=== PATIENT | male | born 1975 | race Caucasian/White ===

== ENCOUNTER 2025-04-12 15:06 | Outpatient (OUT) | payer OTHER, SELFPAY ==
--- OUTSIDE RECORDS SUMMARY | 2025-04-04 09:00 | XMS_ITS | Encounter Summary ---
Author Organization [facility] Address [address] [facility] [email or web address] [place] [address] Care Team Providers Care Yolk Spray Drier Name Role Phone Heike Jasmine NP Unavailable [phone] Rod Johnson MD Primary Care Provider [phone] Reason for Referral * Imaging (Routine) - Authorized Specialty Diagnoses / Procedures Referred By Contac t Referred To Contact Radiology Diagnoses Cholesteatoma of attic of ear, right Procedures CT orbits/sella wo IV contrast Brianda Adkins MD [address] [facility] [address] [place] [address] Phone: tel: fax: [facility] [address] [place] [address] Phone: tel: fax: Referral ID Status Reason Start Date Expiration Date V isits Requested Visits Authorized [id number] Authorized 04/04/2025 10/01/2025 1 1 Reason for Visit * Reason Comments Ear Problem 2 week check ears Encounter Details Date Type Department Care Team (Late st Contact Info) Description 04/04/2025 9:00 AM EDT Office Visit [facility] [place] [facility] [address] [facility] [address] [place] [address] Brianda Adkins MD [address] [facility] [address] [place] [address] Cholesteatoma of attic of ear, right (Primary Dx); Other infective chronic otitis externa of right ear; Lesion of tympanic membrane Social History Tobacco Use Types Packs/Day Years Used Date Smoking Tobacco: Never Smokeless Tobacco: Never Alcohol Use Standard Drinks/Week Comments Yes 2 (1 standard drink = 0.6 oz pur e alcohol) Sex and Gender Information Value Date Recorded Sex Assigned at Not on file Legal Sex Male 7:11 PM EDT Gender Identity Not on file Sexual Orientation Not on file documented as of this encounter Last Filed Vital Signs Vital Sign Reading Time Taken Comments Blood Pressure 121/81 04/04/2025 9:00 AM EDT Pulse 66 04/04/2025 9:00 AM EDT Temperature - - Respiratory Rate - - Oxygen Saturation - - Inhaled Oxygen Concentration - - Weight 101 kg (223 lb) 04/04/2025 9:00 AM EDT Height 177.8 cm (5' 10 ) 04/04/2025 9:00 AM EDT Body Mass Index 32 04/04/2025 9:00 AM EDT documented in this encounter Progress Notes * Brianda Adkins MD - 04/04/2025 9:00 AM EDT Subjective Patient ID: Yakov Langley is a 49 y.o. male who presents for Ear Problem (2 week check ears) F/U to evaluate possible infected cholesteatoma No family history on file. Active Ambulatory Problems Diagnosis Date Noted Eustachian tube dysfunction 03/16/2025 Family history of colon cancer 03/16/2025 Hypertension 03/16/2025 Internal derangement of left knee 03/16/2025 CLIVE (obstructive sleep apnea) 03/16/2025 Plantar fasciitis 03/16/2025 Screen for colon cancer 03/16/2025 Resolved Ambulatory Problems Diagnosis Date Noted No Resolved Ambulatory Problems Past Medical History: Diagnosis Date Arthritis December 2021 Ear problems Injury of anterior cruciate ligament, acute 1992 Tear of meniscus of knee 1992 Past Surgical History: Procedure Laterality Date ANTERIOR CRUCIATE LIGAMENT REPAIR 1992 MENISCECTOMY 1992 Allergies Allergen Reactions Azithromycin Hives Morphine Hallucinations Current Outpatient Medications on File Prior to Visit Medication Sig Dispense Refill meloxicam (Mobic) 15 MG tablet Take 1 tablet (15 mg) by mouth Daily 30 tablet 11 [] ciprofloxacin-dexAMETHasone (CiproDEX) otic suspension Administer 4 drops into the right ear in the morning and 4 drops before bedtime. Do all this for 10 days. 7.5 mL 0 No current facility-administered medications on file prior to visit. Objective Last Recorded Vitals Vitals: 04/04/25 0900 BP: 121/81 Pulse: 66 ENT Physical Exam Constitutional Appearance: patient appears well-developed, well-nourished and well-groomed, Communication/Voice: communication appropriate for developmental age; vocal quality normal; Ear Ear comments: RT - Moist debris suctioned from EAC and TM. Visualization of attic limited by friable soft tissue obstrcting exam. Small patch of thickened soft tissue in inf TM Assessment/Plan Diagnoses and all orders for this visit: Cholesteatoma of attic of ear, right Other infective chronic otitis externa of right ear Lesion of tympanic membrane Infection resolved, but exam of attic obscured by soft tissue. CT temporal bone and F/U documented in this encounter Miscellaneous Notes * Addendum Note - Orly Rodriguez - 04/04/2025 9:00 AM EDTAddended by: ORLY RODRIGUEZ on: 04/04/2025 03:56 PM Modules accepted: Orders documented in this encounter Plan of Treatment Upcoming Encounters Date Type Department Care Team (Late st Contact Info) Description 05/24/2025 8:30 AM EST Office Visit [facility] [place] [facility] [address] [facility] 130 [place] [address] Brianda Adkins MD 112 [facility] 130 [place] [address] Scheduled Orders Name Type Priority Associated Diagnoses Orde r Schedule CT orbits/sella wo IV contrast Imaging Routine Cholesteatoma of attic of ear, right Expected: 04/04/2025, Expires: 04/04/2026 documented as of this encounter Visit Diagnoses Diagnosis Cholesteatoma of attic of ear, right- Primary Other infective chronic otitis externa of right ear Lesion of tympanic membrane documented in this encounter Care Teams Yolk Spray Drier Relationship Specialty Start Date End Date Rod Johnson MD [address] [facility] 2 [place] [address] PCP - General Family Medicine 03/16/25 Heike Jasmine NP [address] [facility] 2 [place] [address] Nurse Practitioner Family Medicine 03/16/25 documented as of this encounter
--- OUTSIDE RECORDS SUMMARY | 2025-04-12 15:11 | XMS_ITS | Encounter Summary ---
Author Organization [facility] [employer] [facility] [employer] Address [id number] [address] [place] [address] Care Team Providers Care Psychologist Experimental Name Role Phone Unavailable Primary Care Provider Unavailabl e Encounter Details Date Type Department Care Team (Late st Contact Info) Description 07/26/2024 Orders Only [facility] [address] [place] [phone] Abiel Poole DO [address] [place] [address] Post-traumatic osteoarthritis of one knee, left Social History Tobacco Use Types Packs/Day Years Used Date Smoking Tobacco: Never Assessed Childcare Answer Date Recorded Childcare Unknown 12/09/2018 Employment Answer Date Recorded Employment Unknown 12/09/2018 Sex and Gender Information Value Date Recorded Sex Assigned at Not on file Legal Sex Male 11:41 AM EDT Gender Identity Not on file Sexual Orientation Not on file documented as of this encounter Plan of Treatment Not on file documented as of this encounter Visit Diagnoses Diagnosis Post-traumatic osteoarthritis of one knee, left documented in this encounter
--- OUTSIDE RECORDS SUMMARY | 2025-04-12 15:11 | XMS_ITS | Encounter Summary ---
Author Organization [facility] Address [address] [facility] [place] [address] Care Team Providers Care Diesel Plant Operator Name Role Phone Heike Jasmine BOOM STORAGE Unavailable [phone] Rod Johnson MD Primary Care Provider [phone] Heike Jasmine BOOM STORAGE Unavailable [phone] Rod Johnson MD Primary Care Provider [phone] Encounter Details Date Type Department Care Team (Late st Contact Info) Description 07/10/2023 Abstract [facility] [address] [place] [address] Rylan Monaco, DPM FAC[facility] [address] [place] [address] Social History Tobacco Use Types Packs/Day Years [...] as of this encounter Plan of Treatment Upcoming Encounters Date Type Department Care Team (Late st Contact Info) Description 05/24/2025 8:30 AM EST Office Visit [facility] [place] [facility] 112 [facility] 130 [place] [address] Brianda Adkins MD 112 [facility] 130 [place], [place] [phone] documented as of this encounter Visit Diagnoses Not on filedocumented in this encounter Care Teams Diesel Plant Operator Relationship Specialty Start Date End Date Rod Johnson MD PCP - General Family Medicine 06/19/23 03/15/25 Rod Johnson MD [address] [phone] PCP - General Family Medicine 03/16/25 Heike Jasmine NP Referring Physician Family Medicine 06/19/23 03/15/25 Heike Jasmine NP [address] [phone] Nurse Practitioner Family Medicine 03/16/25 documented as of this encounter
--- OUTSIDE RECORDS SUMMARY | 2025-04-12 15:11 | XMS_ITS | Encounter Summary ---
Author Organization [facility] Address [address] [facility] [place] [address] Care Team Providers Care Day Care Worker Name Role Phone Heike Jasmine SALES SERVICE PROMOTER Unavailable [phone] Rod Johnson MD Primary Care Provider [phone] Heike Jasmine SALES SERVICE PROMOTER Unavailable [phone] Rod Johnson MD Primary Care Provider [phone] Encounter Details Date Type Department Care Team (Late st Contact Info) Description 07/14/2023 Abstract [facility] [address] [place] [address] Rylan Monaco, DPM FACFAS [address] [place] [address] Social History Tobacco Use Types Packs/Day Years [...] EST Office Visit [facility] [place] [facility] 112 [facility] 130 [place] [address] Brianda Adkins MD 112 [facility] 130 [place], [place] [phone] documented as of this encounter Visit Diagnoses Not on filedocumented in this encounter Care Teams Day Care Worker Relationship Specialty Start Date End Date Rod Johnson MD PCP - General Family Medicine 06/19/23 03/15/25 Rod Johnson MD [address] [phone] PCP - General Family Medicine 03/16/25 Heike Jasmine NP Referring Physician Family Medicine 06/19/23 03/15/25 Heike Jasmine NP [address] [phone] Nurse Practitioner Family Medicine 03/16/25 documented as of this encounter
--- OUTSIDE RECORDS SUMMARY | 2025-04-12 15:11 | XMS_ITS | Encounter Summary ---
Author Organization [facility] Address [address] [place] [address] Care Team Providers Care Nuclear Reactor Operator Name Role Phone Heike Jasmine CONTROL CABINET ASSEMBLER Unavailable [phone] Rod Johnson MD Primary Care Provider [phone] Heike Jasmine CONTROL CABINET ASSEMBLER Unavailable [phone] Rod Johnson MD Primary Care Provider [phone] Encounter Details Date Type Department Care Team (Late st Contact Info) Description 09/02/2024 Abstract [facility] [address] [place] [address] Rylan Monaco, DPM FACFAS [address] [place] [address] Social History Tobacco Use Types Packs/Day Years [...] EST Office Visit [facility] [place] [facility] 112 [facility] 130 [place] [address] Brianda Adkins MD 112 [facility] 130 [place], [place] [phone] documented as of this encounter Visit Diagnoses Not on filedocumented in this encounter Care Teams Nuclear Reactor Operator Relationship Specialty Start Date End Date Rod Johnson MD PCP - General Family Medicine 06/19/23 03/15/25 Rod Johnson MD [address] [phone] PCP - General Family Medicine 03/16/25 Heike Jasmine NP Referring Physician Family Medicine 06/19/23 03/15/25 Heike Jasmine NP [address] [phone] Nurse Practitioner Family Medicine 03/16/25 documented as of this encounter
--- OUTSIDE RECORDS SUMMARY | 2025-04-12 15:11 | XMS_ITS | Clinical Summary ---
Author Organization [facility] Address [address] [place] [address] Phone Care Team Providers Care Printing Table Hand Name Role Phone Unavailable Primary Care Provider Unavailabl e Social History Tobacco Use Types Packs/Day Years Used Date Smoking Tobacco: Never Assessed Sex and Gender Information Value Date Recorded Sex Assigned at Not on file Legal Sex Male 1:08 PM EDT Gender Identity Not on file Sexual Orientation Not on file Plan of Treatment Health Maintenance Due Date Last Done Comments CT Colonography 1975 Colonoscopy 1975 Colorectal Cancer Screening 1975 FIT-DNA (Cologuard) 1975 FIT 1975 HIV Screening 1975 Lipid Panel 1975 Sigmoidoscopy 1975 Yearly Adult Physical 1975 MMR Vaccines (1 of 1 - Stand valerie series) 10/20/1976 Hepatitis C Screening 10/20/1993 Hepatitis B Vaccines (1 of 3 - 19+ 3-dose series) 10/20/1994 DTaP/Tdap/Td Vaccines (1 - Tdap) 10/20/1997 COVID-19 Vaccine ( - 2023-2 5 season) 2025 Influenza Vaccine (#1) 2025 Zoster Vaccines (1 of 2) 10/20/2025 HIB Vaccines Aged Out No longer eligi ble based on patient's age to complete this topic HPV Vaccines Aged Out No longer eligi ble based on patient's age to complete this topic Hepatitis A Vaccines Aged Out No long er eligible based on patient's age to complete this topic IPV Vaccines Aged Out No longer eligi ble based on patient's age to complete this topic Meningococcal Vaccine Aged Out No tea emani eligible based on patient's age to complete this topic Pneumococcal Vaccine: Pediat rics and At-Risk Adult Patients Aged Out No longer sahara gible based on patient's age to complete this topic Rotavirus Vaccines Aged Out No longer eligible based on patient's age to complete this topic
--- OUTSIDE RECORDS SUMMARY | 2025-04-12 15:11 | XMS_ITS | Encounter Summary ---
Author Organization [facility] [employer] [facility] Address [facility] [id number] [address] [place] [address] Care Team Providers Care Plate Stacker Name Role Phone Unavailable Primary Care Provider Unavailabl e Reason for Visit * Reason Onset Date Comments discuss imaging and appt with Dr. Romero 08/16 Encounter Details Date Type Department Care Team (Late st Contact Info) Description 08/16/2024 [facility] [address] [place] [phone] Erica Rain RMA discuss imaging and appt with Dr. Romero Social History Tobacco Use Types Packs/Day Years Used Date Smoking Tobacco: Never Smokeless Tobacco: Never Alcohol Use Standard Drinks/Week Comments Yes 0 (1 standard drink = 0.6 oz pur e alcohol) Childcare Answer Date Recorded Childcare Unknown 12/09/2018 Employment Answer Date Recorded Employment Unknown 12/09/2018 Sex and Gender Information Value Date Recorded Sex Assigned at Not on file Legal Sex Male 11:41 AM EDT Gender Identity Not on file Sexual Orientation Not on file documented as of this encounter Miscellaneous Notes * Telephone Encounter - GERMAN Cosby - 08/16/2024 2:12 PM EST This is the patient I am trying to see if Tenex will be covered. Bilateral Achilles. Per Dr. 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 Romero in conversation Ellen will reach out to patient, letting him know we are working on this Email was sent to [facility] to see if they take his insurance * Telephone Encounter - Ellen Welch - 08/16/2024 2:12 PM EST I spoke with the patient to let him know we're checking on his insurance. * Telephone Encounter - Abiel Poole DO - 08/16/2024 2:12 PM EST Do we have an imaging CD in his red chart? * Telephone Encounter - Ellen Welch - 08/16/2024 2:12 PM EST We have no imaging of his heel or ankle. * Telephone Encounter - GERMAN Cosby - 08/16/2024 2:12 PM EST I am sure I will need for authorization purposes. I can call [facility] first to see if it's even a covered benefit * Telephone Encounter - Ellen Welch - 08/16/2024 2:12 PM EST I can order an x-ray for him, and let him know he needs to get them. * Telephone Encounter - GERMAN Cosby - 08/16/2024 2:12 PM EST Correction on code from below. M76.60 * Telephone Encounter - GERMAN Cosby - 08/16/2024 2:12 PM EST Ellen, That would be great if he can get it done. I ran it thru his insurance, it looks like it's a covered benefit. After xray we have to bring him in for consult with Dr. Romero. Next Tenenx date is 09/20/24 * Telephone Encounter - Ellen Welch - 08/16/2024 2:12 PM EST I spoke with the patient and he had xrays done through his appeals representative. He's trying to get the imaging to us. Are you able to schedule him without the imaging? * Telephone Encounter - Abiel Poole DO - 08/16/2024 2:12 PM EST Would use the following code: M65.28 * Telephone Encounter - GERMAN Cosby - 08/16/2024 2:12 PM EST Images from the original note were not included. Sent new code to see if it needs authorization. Old code did not need prior auth or predetermination. * Telephone Encounter - GERMAN Cosby - 08/16/2024 2:[address] Poole wants to use a different diagnosis code of M65.28. DO you need to run this auth again? * Telephone Encounter - Adriana Meza CMA - 08/16/2024 2:12 PM EST Different dx code should have no bearing * Telephone Encounter - GERMAN Cosby - 08/16/2024 2:12 PM EST Please let me know when imaging arrives. Next Tenex date is 09/20. Should have him scheduled by second week in August to be safe * Telephone Encounter - Ellen Welch - 08/16/2024 2:12 PM EST Ok, thank you. * Telephone Encounter - GERMAN Cosby - 08/16/2024 2:12 PM EST Left voicemail to discuss xray and H&P with Dr. Romero * Telephone Encounter - GERMAN Cosby - 08/16/2024 2:12 PM EST Appt on 09/13. Please make sure he signs he sign they appropriate Tenex and leave it on my desk documented in this encounter Plan of Treatment Not on file documented as of this encounter Visit Diagnoses Not on filedocumented in this encounter
--- OUTSIDE RECORDS SUMMARY | 2025-04-12 15:11 | XMS_ITS | Clinical Summary ---
Author Organization [facility] Address [address] [place] [address] Care Team Providers Care Supervisor Last Model Department Name Role Phone Heike Jasmine NP Unavailable [phone] Rod Johnson MD Primary Care Provider Allergies Active Allergy Reactions Criticality Noted Date Comments Azithromycin Hives High 07/12/2024 Morphine Hallucinations 06/19/2023 Medications meloxicam (Mobic) 15 MG tabletIndicatio ns:Calcaneal spur of foot, left Take 1 tablet (15 mg) by mouth Daily 30 tablet 11 4 04/21/20 25 Active ciprofloxacin-d exAMETHasone (CiproDEX) otic suspensionIndic ations:Other infective chronic otitis externa of right ear Administer 4 drops into the right ear in the morning and 4 drops before bedtime. Do all this for 10 days. 7.5 mL 5 03/31/20 25 Active Problems Problem Noted Date Diagnosed Date Eustachian tube dysfunction 03/16/2025 Family history of colon cancer 03/16/2025 Hypertension 03/16/2025 Internal derangement of left knee 03/16/2025 CLIVE (obstructive sleep apnea) 03/16/2025 Plantar fasciitis 03/16/2025 Screen for colon cancer 03/16/2025 Encounters Date Type Department Care Team Description 04/04/2025 9:00 AM EDT Office Visit [facility] [place] [facility] [address] [place] [phone] Brianda Adkins MD Cholesteatoma of attic of ear, right (Primary Dx); Other infective chronic otitis externa of right ear; Lesion of tympanic membrane 04/04/2025 Bamboo flowsheet [facility] [address] [place] [address] Brianda Adkins MD 04/04/2025 Travel 03/21/2025 10:50 AM EDT Office Visit [facility] [place] [facility] [address] [place] [address] Brianda Adkins MD Other infective chronic otitis externa of right ear (Primary Dx); Cholesteatoma of attic of ear, right 03/21/2025 Bamboo flowsheet [facility] [address] [place] [address] Brianda Adkins MD 03/21/2025 Travel from Last 3 Months Family History Relation Name Status Comments Father Alive Mother Alive Social History Tobacco Use Types Packs/Day Years Used Date Smoking Tobacco: Never Smokeless Tobacco: Never Tobacco Cessation:Counseling Given: Not Answered Alcohol Use Standard Drinks/Week Comments Yes 2 (1 standard drink = 0.6 oz pur e alcohol) Sex and Gender Information Value Date Recorded Sex Assigned at Not on file Legal Sex Male 7:11 PM EDT Gender Identity Not on file Sexual Orientation Not on file Last Filed Vital Signs Vital Sign Reading [...] Mass Index 32 04/04/2025 9:00 AM EDT Plan of Treatment Upcoming Encounters Date Type Department Care Team (Late st Contact Info) Description 05/24/2025 8:30 AM EST Office Visit [facility] [address] [place] [address] Brianda Adkins MD 112 [facility] 130 [place], [place] [phone] Insurance [facility] Care Teams Supervisor Last Model Department Relationship Specialty Start Date End Date Rod Johnson MD [address] [address] PCP - General Family Medicine 03/16/25 Heike Jasmine NP [address] [address] Nurse Practitioner Family Medicine 03/16/25
--- OUTSIDE RECORDS SUMMARY | 2025-04-12 15:11 | XMS_ITS | Encounter Summary ---
Author Organization [facility] Address [address] [place] [address] Care Team Providers Care Railroad Police Name Role Phone Heike Jasmine COAT EXAMINER Unavailable [phone] Rod Johnson MD Primary Care Provider + Heike Jasmine COAT EXAMINER Unavailable [phone] Rod Johnson MD Primary Care Provider + Encounter Details Date Type Department Care Team (Late st Contact Info) Description 07/03/2023 Orders Only [facility] [address] [place] [address] Mei Couch MA Social History Tobacco Use Types Packs/Day Years [...] 05/24/2025 8:30 AM EST Office Visit [facility] [place] [facility] 112 [facility] 130 [place] [phone] Brianda Adkins MD 112 [facility] 130 [place] [phone] documented as of this encounter Visit Diagnoses Not on filedocumented in this encounter Care Teams Railroad Police Relationship Specialty Start Date End Date Rod Johnson MD PCP - General Family Medicine 06/19/23 03/15/25 Rod Johnson MD [address] [phone] PCP - General Family Medicine 03/16/25 Heike Jasmine NP Referring Physician Family Medicine 06/19/23 03/15/25 Heike Jasmine NP [address] [phone] Nurse Practitioner Family Medicine 03/16/25 documented as of this encounter
--- OUTSIDE RECORDS SUMMARY | 2025-04-12 15:11 | XMS_ITS | Clinical Summary ---
Author Organization [employer] Address [id number] [address] [place] [address] Care Team Providers Care Aluminum Pourer Name Role Phone Unavailable Primary Care Provider Unavailabl e Allergies Active Allergy Reactions Criticality Noted Date Comments Azithromycin Hives 07/12/2024 Medications No known medications Active Problems No known active problems Social History Tobacco Use Types Packs/Day Years Used Date Smoking Tobacco: Never Smokeless Tobacco: Never Tobacco Cessation:Counseling Given: Not Answered Alcohol Use Standard Drinks/Week Comments Yes 0 [...] Sign Reading Time Taken Comments Blood Pressure - - Pulse - - Temperature - - Respiratory Rate - - Oxygen Saturation - - Inhaled Oxygen Concentration - - Weight 127.9 kg (282 lb) 11/16/2024 1:23 PM EDT Height 175.3 cm (5' 9 ) 11/16/2024 1:23 PM EDT Body Mass Index 41.64 11/16/2024 1:23 PM EDT Plan of Treatment Health Maintenance Due Date Last Done Comments Depression Screening 1987 Adult BMI Follow Up Plan 10/20/1993 DTaP,Tdap and Td Vaccines (1 - Tdap) 10/20/1994 COVID-19 Vaccine (2024-2 6 season) 2025 05/31/2022, 05/20/2021, 2020, Additional history exists Influenza Vaccine 02/28/2025 Tobacco Screening 09/14/2025 09/14/2024 Adult BMI Screening 11/16/2025 11/16/2024 Medical Devices Not on file Insurance [facility]
--- OUTSIDE RECORDS SUMMARY | 2025-04-12 15:11 | XMS_ITS | Encounter Summary ---
Author [facility] Address [id number] [address] [place] [address] Care Team Providers Care Business Development Representative Name Role Phone Unavailable Primary Care Provider Unavailabl e Encounter Details Date Type Department Care Team (Late st Contact Info) Description 07/30/2024 Orders Only [facility] Sonya Manuel [address] [place] [phone] Anny Fabian Social History Tobacco Use Types Packs/Day Years [...]
--- OUTSIDE RECORDS SUMMARY | 2025-04-12 15:11 | XMS_ITS | Encounter Summary ---
Author Organization [facility] Address [address] [place] [address] Care Team Providers Care Helper Maintenance Cleaning Name Role Phone Heike Jasmine TESTER/LIFT TRUCKER Unavailable [phone] Rod Johnson MD Primary Care Provider [phone] Encounter Details Date Type Department Care Team (Latest Contact Info) Description 04/04/2025 Travel Social History Tobacco Use Types Packs/Day Years [...] EST Office Visit [facility] [address] [facility] 130 [place] [phone] Brianda Adkins MD 112 [facility] 130 [place] [address] documented as of this encounter Visit Diagnoses Not on filedocumented in this encounter Care Teams Helper Maintenance Cleaning Relationship Specialty Start Date End Date Rod Johnson MD 348 [facility] 2 [place] [address] PCP - General Family Medicine 03/16/25 Heike Jasmnie NP [address] [place] [phone] Nurse Practitioner Family Medicine 03/16/25 documented as of this encounter
--- OUTSIDE RECORDS SUMMARY | 2025-04-12 15:11 | XMS_ITS | Encounter Summary ---
Author Organization [facility] Address [address] [facility] [place] [address] Care Team Providers Care Feed Mill Tender Name Role Phone Heike Jasmine NP Unavailable [phone] Rod Johnson MD Primary Care Provider [phone] Encounter Details Date Type Department Care Team (Late Contact Info) Description 04/04/2025 Bamboo flowsheet [facility] [place] [facility] [address] [facility] [address] [place] [phone] Brianda Adkins MD [address] [facility] 130 [place] [address] Social History Tobacco Use Types Packs/Day Years [...] EST Office Visit [facility] [place] [address] [facility] [address] [place] [phone] Brianda Adkins MD [address] [facility] 130 [place] [address] documented as of this encounter Visit Diagnoses Not on filedocumented in this encounter Care Teams Feed Mill Tender Relationship Specialty Start Date End Date Rod Johnson MD 348 [facility] 2 [place] [phone] PCP - General Family Medicine 03/16/25 Heike Jasmine NP 348 [facility] 2 [place] [phone] Nurse Practitioner Family Medicine 03/16/25 documented as of this encounter
--- OUTSIDE RECORDS SUMMARY | 2025-04-12 15:11 | XMS_ITS | Encounter Summary ---
Author Organization [facility] Address [address] [facility] [place] [address] Care Team Providers Care Plastic Surgery Coordinator Name Role Phone Heike Jasmine CHIEF LIBRARIAN BRANCH Unavailable [phone] Rod Johnson MD Primary Care Provider [phone] Heike Jasmine CHIEF LIBRARIAN BRANCH Unavailable [phone] Rod Johnson MD Primary Care Provider [phone] Encounter Details Date Type Department Care Team (Late st Contact Info) Description 06/20/2023 Abstract [facility] [address] [place] [address] Rylan Monaco, DPM [facility]AC[facility] [address] [place] [address] Social History Tobacco Use Types Packs/Day Years [...] EST Office Visit [facility] [place] [facility] [address] [facility] 130 [place] [address] Brianda Adkins MD 112 [facility] 130 [place], [place] [phone] documented as of this encounter Visit Diagnoses Not on filedocumented in this encounter Care Teams Plastic Surgery Coordinator Relationship Specialty Start Date End Date Rod Johnson MD PCP - General Family Medicine 06/19/23 03/15/25 Rod Johnson MD [address] [phone] PCP - General Family Medicine 03/16/25 Heike Jasmine NP Referring Physician Family Medicine 06/19/23 03/15/25 Heike Jasmine NP [address] [phone] Nurse Practitioner Family Medicine 03/16/25 documented as of this encounter
--- OUTSIDE RECORDS SUMMARY | 2025-04-12 15:11 | XMS_ITS | Encounter Summary ---
Author Organization [facility] Address [id number] [address] [place] [address] Care Team Providers Care Stitch Bonding Machine Drawer In Name Role Phone Unavailable Primary Care Provider Unavailabl e Reason for Referral * Diagnostic Imaging (Routine) - Pending Review Specialty Diagnoses / Procedures Referred By Laura t Referred To Contact Diagnoses Chronic pain of left knee Procedures Fluoroscopy stem cell Abiel Poole DO [address] [place] [address] Phone: tel: fax: Referral ID Status Reason Start Date Expiration Date V isits Requested Visits Authorized [id number] Pending Review 07/12/2024 07/12/2025 1 1 Encounter Details Date Type Department Care Team (Late st Contact Info) Description 07/12/2024 Orders Only Regenerative Medicine Sonya Manuel [address] [place] [phone] Anny Fabian Chronic pain of left knee (Primary Dx) Social History Tobacco Use Types Packs/Day Years [...] on file documented as of this encounter Results * Fluoroscopy stem cell (08/02/2024 7:56 AM EST) Narrative SYSTEMGENERATED, DOCUMENTATION - 08/02/2024 7:57 AM EST This exam is for fluoroscopic guidance during the operative procedure and does not contain a Radiology report. Abiel Poole DO IMG FLUOROSCOPY ORDERABLES Final Result documented in this encounter Visit Diagnoses Diagnosis Chronic pain of left knee- Primary documented in this encounter
--- NOTE | 2025-04-12 15:14 | CT_ITS ---
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 TECHNIQUE: Using a multi-detector scanner, 0.5 x 0.3 mm axial scans of the temporal bone were acquired using a high-resolution bone technique. The scans were retrospectively targeted for right and left side, and subsequently reconstructed in the coronal and Sagittal plane, again targeting the right and left sides individually, as well as the entire skull base. CT was performed with one or more of the following dose reduction techniques: Automated exposure control, adjustment of the mA and/or kV according to patient size, or use of iterative reconstruction technique. FINDINGS: Right: The middle ear cleft is within normal limits. and the ossicles are within normal limits. The cochlea, vestibule, vestibular and cochlear aqueduct are within normal limits. The facial nerve canal is within normal limits. The semicircular canals are within normal limits. The internal auditory canal is within normal limits. The external auditory canal and mastoid air cells are within normal limits. There is slight thickening of the tympanic membrane. The carotid canal and jugular foramen are within normal limits. The temporomandibular joint is within normal limits. Left: The middle ear cleft is within normal limits and the ossicles are within normal limits. The cochlea, vestibule, vestibular and cochlear aqueduct are within normal limits. The facial nerve canal is within normal limits. The semicircular canals are within normal limits.. The internal auditory canal is within normal limits.. The external auditory canal and mastoid air cells are within normal limits. There is slight thickening of the tympanic membrane. The carotid canal and jugular foramen are within normal limits. The temporomandibular joint is intact. CT/CT int auditory canals w con IMPRESSION: No CT evidence of cholesteatoma. There is slight thickening of the tympanic membranes bilaterally. No evidence of mastoid or middle ear effusion. Impression dictated by: Abel Vernon M.D. 04/12/2025 3:58 PM Dictation Location: [place] [address] Electronically authenticated by: [id number] Y Date: 04/12/2025 15:58
== END 2025-04-12 15:07 | disposition home or self-care (01) ==
PROVIDERS: PCP Psychiatry & Neurology Neurology; Visit Provider Otolaryngology
DX: H71.01 Cholesteatoma of attic, right ear (principal)
CPT/HCPCS: 70480; 70481

== ENCOUNTER 2025-04-12 21:01 | Outpatient (OUT) | payer OTHER, SELFPAY | END 2025-04-12 21:02 | disposition home or self-care (01) | PROVIDERS: PCP Psychiatry & Neurology Neurology; Visit Provider Psychiatry & Neurology Neurology | DX: G47.33 Obstructive sleep apnea (adult) (pediatric) (principal); H71.01 Cholesteatoma of attic, right ear | CPT/HCPCS: 70481; 95810 ==

== ENCOUNTER 2025-06-01 19:59 | Outpatient (OUT) | payer OTHER, SELFPAY ==
--- OUTSIDE RECORDS SUMMARY | 2025-06-01 20:03 | XMS_ITS | Clinical Summary ---
Author Organization [facility] Address [address] [place] [address] Phone Care Team Providers Care Stone Banker Name Role Phone Unavailable Primary Care Provider Unavailabl e Social History Tobacco UseTypesPacks/DayYears UsedDateSmoking Tobacco: Never AssessedSex and Gender InformationValueDate RecordedSex Assigned at BirthNot on fileLegal Sex Male01/19/2023 1:08 PM EDTGender IdentityNot on fileSexual OrientationNot on file Plan of Treatment Health MaintenanceDue DateLast DoneCommentsCT Ecuopghlwykb63/23/1976Colonoscopy 1975Colorectal Cancer Abhswyafl14/23/1976FIT-DNA (Cologuard)1975FIT 1975HIV Ditcbddem70/23/1976Lipid Panel1975 0998Rozvhjhmikzkx96/23/1976 Yearly Adult Rdbycnrg61/23/1976MMR Vaccines (1 of 1 - Standard series)10/20/1976 Hepatitis C Rjvelmkkx18/23/1994Hepatitis B Vaccines (1 of 3 - 19+ 3-dose series) 10/20/1994DTaP/Tdap/Td Vaccines (1 - Tdap)10/20/1997Influenza Vaccine (#1) 5COVID-19 Vaccine (1 - 2024- season)2025Zoster Vaccines (1 of 2)10/20/2025HIB VaccinesAged OutNo longer eligible based on patient's age to complete this topicHPV VaccinesAged OutNo longer eligible based on patient's age to complete this topicHepatitis A VaccinesAged OutNo longer eligible based on patient's age to complete this topicIPV VaccinesAged OutNo longer eligible based on patient's age to complete this topicMeningococcal VaccineAged OutNo longer eligible based on patient's age to complete this topicPneumococcal Vaccine: Pediatrics and At-Risk Adult PatientsAged OutNo longer eligible based on patient's age to complete this topicRotavirus VaccinesAged OutNo longer eligible based on patient's age to complete this topic
== END 2025-06-01 20:00 | disposition home or self-care (01) ==
PROVIDERS: PCP Psychiatry & Neurology Neurology; Visit Provider Psychiatry & Neurology Neurology
DX: G47.33 Obstructive sleep apnea (adult) (pediatric) (principal)
CPT/HCPCS: 95811